=== PATIENT | male | born 1955 | race Caucasian/White ===

== ENCOUNTER → 2021-01-19 | Outpatient (CLI) | payer MEDICARE ==
--- NOTE | 2021-01-22 08:21 | RAD ---
XR KNEE _3 VIEWS_LT History: Reason: LEFT KNEE PAIN / Spl. Instructions: / History: Technique: 3 views left knee. Comparison: None. Findings: No dislocation. No acute fracture. Mild left knee DJD most prominent within the medial and patellofem oral compartments. Small knee joint effusion. Impression: 1. Mild left knee DJD. Electronically signed by: Jeremi Sanchez DO (01/22/2021 8:19 AM) [id number]
== END ==
LOC: RAD 13:04
PROVIDERS: ATTEND Family Medicine
DX: M17.12 Unilateral primary osteoarthritis, left knee (principal); M25.462 Effusion, left knee
CPT/HCPCS: 73562